=== PATIENT | female | born 1955 | race Caucasian/White ===

== ENCOUNTER 2017-06-18 02:34 | Day surgery (SDC) | payer BC ==
--- NOTE | 2017-06-17 16:56 | HISTORY AND PHYSICAL ---
DATE OF ADMISSION: 06/18/2017 CHIEF COMPLAINT Kidney stones. HISTORY OF PRESENT ILLNESS Patient is a 62-year-old white female with a history of kidney stones, who last fall had an obstructing renal stone as well as kidney stones, and subsequently underwent treatment of those. In more recent followup she was noted to have a 6 x 3 mm calcification in the lower pole of the left kidney, and a 2 mm mid pole stone, all on the left. She is now being brought to the operating room for planned extracorporeal shock wave lithotripsy and/or ureteroscopy as indicated. PAST MEDICAL HISTORY * Hyperlipidemia. * Kidney stones. * Arthritis. * Eczema. * Depression. PAST SURGICAL HISTORY * Tonsillectomy. * Knee surgery. * Left rotator cuff surgery. * Right NEHA surgery. * TMJ surgery. * Right extracorporeal shock wave lithotripsy in 2009. * Stent placement on the left in March 2016. * Left extracorporeal shock wave lithotripsy in April 2016. * Left ureteroscopy in May 2016. ALLERGIES FLOMAX and PENICILLIN. She has myalgias with Levaquin. CURRENT MEDICATIONS * Diltiazem. * EpiPen p.r.n. * Prozac. * Hydrochlorothiazide. * Potassium citrate. FAMILY HISTORY Noncontributory. REVIEW OF SYSTEMS Patient denies a productive cough, fever, chills, nausea, vomiting, liver disease, anginal type chest pain. She has recently had medical clearance by [facility] for some atypical chest pain, not thought to be cardiac in origin. PHYSICAL EXAMINATION GENERAL: Patient is a well-developed, well-nourished white female in no acute distress. HEENT: Normocephalic, atraumatic. CHEST: Clear to auscultation bilaterally. CARDIOVASCULAR: Regular rate and rhythm. ABDOMEN: Soft, nontender. No masses are palpated. GENITOURINARY: Exam is deferred to the operating room. EXTREMITIES: Without clubbing, cyanosis or edema. NEUROLOGIC: Exam is nonfocal. ASSESSMENT A 62-year-old white female with left kidney stones. PLAN We will perform extracorporeal shock wave lithotripsy and/or ureteroscopy as indicated. [facility]
[~2017-06-18] VITALS: Ht 162.6 cm; Wt 67.6 kg
[~2017-06-18 02:34] MED LIST: ASC500 PO; DIA5 PO; DOC100 PO; DOCU-416 PO; ERG400 PO; FLU10 PO; GLUC-179 PO; HYDR-2966 PO; HYDR-317; HYDR-385 PO; HYDR-4309 PO; IBUP-1618 PO; IBUP-1671 PO; IBUP600T22 PO; LEV500 PO; LEVO-85 PO; LOR5 PO; METH1TAB65 PO; MULT-1335 PO; NAPR220C12 PO; OXYB10TA16 PO; OXYB10TA21 PO; PER PO; PHEN200T32 PO; PHENA200 PO; POTA20TA94 PO; POTA40LI PO; RED600CA15 PO; TAM4 PO; TAMS0.4C25 PO; TOLT4CAP13 PO; TRAM-420 PO
[2017-06-18] MEDS ORDERED: IOPAMIDOL-200 50 ML VIAL IS ONE (08:07)
[2017-06-18] MEDS ORDERED: MIDAZOLAM 2 MG/2 ML VIAL IVP PRN (08:30)
[2017-06-18] MEDS ORDERED: FAMOTIDINE 20 MG TAB PO ONE (08:30)
[2017-06-18] MEDS ORDERED: LIDOCAINE/SOD BICARB 8.4% SYR ID ONE (08:30)
[2017-06-18] MEDS ORDERED: GENTAMICIN/NS 80 MG/100 ML PB 100 ML IVPB ONE (09:30)
[2017-06-18 10:12] VITALS: BP 114/73
[2017-06-18] MEDS: NORMOSOL R SOLN(*) 1000 ML BAG 1,000 ML IV PRN ×2 (10:12→14:45)
[2017-06-18] MEDS ORDERED: LIDOCAINE MPF 1% 5 ML VIAL ONE (10:13)
[2017-06-18] MEDS ORDERED: DEXAMETHASONE SOD 4 MG/ML VIAL ONE (10:13)
[2017-06-18] MEDS ORDERED: METOCLOPRAMIDE 10 MG/2 ML SDV ONE (10:13)
[2017-06-18] MEDS ORDERED: ONDANSETRON 4 MG/2 ML VIAL ONE (10:13)
[2017-06-18] MEDS ORDERED: PROPOFOL EMUL(*) 10MG/ML 20 ML 20 ML ONE (10:13)
[2017-06-18 10:15] LABS: PLATELET COUNT, AUTOMATED 274 K/uL (150-450)
[2017-06-18] MEDS ORDERED: fentaNYL CITR 100 MCG/2 ML AMP ONE (10:17)
[2017-06-18] MEDS ORDERED: KETOROLAC 30 MG/ML VIAL ONE (14:21)
--- NOTE | 2017-06-18 15:05 | RADIOLOGY IMAGING REPORT ---
FACILITY: [facility] PATIENT NAME: Rowena Duron : 1955 MR: [id number] V: [id number] EXAM DATE: ORDERING PHYSICIAN: PATRICIA EWING TECHNOLOGIST: Location: [facility] [place] Patient: Rowena Duron : 1955 Visit/Account:[id number] Date of Sevice: 06/12/2017 ABDOMEN PELVIS ESWL CYSTO W/O HISTORY: PREOP ORDER TECHNIQUE: Axial images acquired through the abdomen/pelvis. Coronal and sagittal reformatting also performed. No IV contrast administered. Dose Lowering Technique One of the following dose optimization techniques was utilized in the performance of this exam: Autom ated exposure control; adjustment of the mA and/or kV according to the patient's size; or use of an i terative reconstruction technique. Specific details can be referenced in the facility's radiology C T exam operational policy. COMPARISON: June 09, 2017 FINDINGS: Visualized lung bases: Negative. Hepatobiliary: Negative. Spleen: Negative. Adrenals: Negative. Pancreas: Negative. Kidneys ureters and bladder: No calcifications identified in the right renal collecting system. At least four calcifications are seen in the lower pole collecting system of the left kidney similar to the prior study. The largest measuring approximately 4 mm in diameter. There is no demonstration of hydronephrosis or hydroureter. The bladder is decompressed therefore not ideally evaluated. Genitalia: Negative. GI: Negative. Vessels/spaces/nodes: Negative. Bones/soft tissues: Small umbilical hernia containing fat. There is a dextro convex scoliosis of th e thoracic spine with spondylotic changes Additional findings: None pertinent. IMPRESSION: At least four nonobstructing calculi are seen in the lower pole collecting system of the left kidney that appears some are to the prior study. No calcifications identified in the right renal collecting system. Report Dictated By: Faviola Cabrera MD at 06/18/2017 2:57 PM Report E-Signed By: Faviola Cabrera MD at 06/18/2017 3:01 PM WSN:[email or web address]
[2017-06-18] MEDS ORDERED: DOCU-416 PO (15:29)
[2017-06-18] MEDS ORDERED: HYDR-4309 PO (15:30)
[2017-06-18 15:31] VITALS: BP 120/78
[2017-06-18 15:37] VITALS: BP 121/67
[2017-06-18 15:38] VITALS: BP 100/66
--- NOTE | 2017-06-20 10:24 | PIERCE ESWL ---
EVENT DATE: June 18, 2017 SURGEON: Patrice Anderson MD ANESTHESIOLOGIST: Raymundo Pedro MD ANESTHESIA: General PREOPERATIVE DIAGNOSIS Left renal calculi. POSTOPERATIVE DIAGNOSIS Left renal calculi. PROCEDURE PERFORMED Left renal extracorporeal shock wave lithotripsy. ESTIMATED BLOOD LOSS Minimal. IV FLUIDS Crystalloid. DRAINS None. COMPLICATIONS None. CONDITION The patient was taken to the recovery room awake and in stable condition. STATEMENT OF MEDICAL NECESSITY The patient is a 62-year-old white female with a history of a kidney stone. She was noted to have increasing stone burden in the left lower pole with a stone measuring 7 x 3 x 3 mm. She also had a second smaller stone just adjacent anteriorly to this larger stone. Options were discussed with the patient and she elected to undergo left extracorporeal shock wave lithotripsy. Specific risks and benefits were explained including bleeding, infection, failure to fragment stones or pass all fragments and need for secondary procedure, as well as damage to adjacent structures including kidney. Operative consent is signed and on the chart. DESCRIPTION OF OPERATION PERFORMED The patient was brought to the operating room after general anesthetic was obtained. She was placed supine on the lithotripsy table. A 7 x 3 mm stone was visualized with fluoroscopic imaging and placed in the lithotripsy cross- hairs in two planes. Treatment was begun at a power setting 2 and gradually increased to a power setting of 3 over the course of the first 300 shocks. A three minute pause was then performed and treatment was resumed, gradually increasing the power setting to 7.5. Intermittent two-plane fluoroscopy was used to ensure the cross-hairs remained on the stone until a fragmented pile. At 2500 shocks, the power was increased to 8.5 for 500 more shocks. She received a total of 3000 shocks to the left kidney in the area of this 7 x 3 mm stone. At the conclusion, there were no further significant fragments that could be identified. The patient was awakened in the operating room and taken to the recovery area in stable condition. The plan will be to allow the patient to be discharged home on [place] and [place]. She is to start the head down protocol in one to two days. She will plan to see me in the Urology Clinic in approximately eight weeks with a followup low-dose CT scan to evaluate treatment results. MARYLU
== END 2017-06-18 15:31 | disposition home or self-care (01) ==
LOC: OR 02:34
PROVIDERS: ATTEND Urology
DX: N20.0 Calculus of kidney (principal); E78.5 Hyperlipidemia, unspecified; Z87.442 Personal history of urinary calculi
CPT/HCPCS: 36415; 50590; 74176; 81001; 85025; 85610; J1100; J1580; J1885; J2001; J2405; J2704; J2765; J3010; 82310; 82374; 82435; 82565; 82947; 84132; 84295; 84520; Q9966

== ENCOUNTER 2017-09-11 15:34 | Observation (INO) | payer BC ==
[~2017-09-11] VITALS: Ht 162.6 cm; Wt 72.6 kg
--- NOTE | 2017-09-11 15:49 | ER Report ---
History and Physical Time Seen By MD: 15:49 Hx. of Stated Complaint: pt reports "she was feeling funny", went to [facility]- "took vitals and told me I was in a-fib" HPI/ROS CHIEF COMPLAINT: Rapid heart rate HISTORY OF PRESENT ILLNESS: 62-year-old female patient presents to emergency room with complaint of a rapid heart rate. Patient states this started approximately 2:00 this afternoon. She states that she is not doing anything and it felt like her heart was beating out of her chest. She states she did feel veins in her chest expanding. She states that she did go to urgent care and was evaluated there. She states that they listen to her and told her that she was in H with fibrillation and referred her to the emergency room. Patient states she's not feeling shortness of breath, is not having chest pain. She denies any nausea, vomiting or diarrhea. She she does feel slightly anxious. REVIEW OF SYSTEMS: Respiratory: No cough, no dyspnea. Cardiovascular: As noted above Gastrointestinal: No vomiting, no abdominal pain. Musculoskeletal: No back pain. Allergies: Coded Allergies: levofloxacin (Verified Allergy, Severe, TENDONITIS, 09/11/17) tamsulosin (Verified Allergy, Severe, "JUST FELT TERRIBLE", 09/11/17) Penicillins (Verified Allergy, Intermediate, HIVES, 09/11/17) phenazopyridine (Verified Adverse Reaction, Intermediate, "Swollen eyes" , 09/11/17) Home Meds Reported Medications Diazepam (DIAZEPAM) 2 Mg Tablet, 1 TAB PO DAILY Y for HEADACHE 09/11/17 Potassium Citrate (Potassium Citrate ER) 15 Meq Tablet.er, 2 TAB PO QPM 09/11/17 Potassium Citrate (Potassium Citrate ER) 15 Meq Tablet.er, 1 TAB PO QAM 09/11/17 Naproxen Sodium (ALEVE) 220 Mg Capsule, 220 MG PO BID, CAPSULE 09/11/17 Renick-3 Fatty Acids/Fish Oil (FISH OIL 1,000 MG SOFTGEL) 1 Each Capsule, 1 EACH PO DAILY, CAPSULE 09/11/17 Hydrochlorothiazide (HYDROCHLOROTHIAZIDE) 25 Mg Tablet, 1 TAB PO BID, TAB 06/12/17 Vitamin D (Vitamin D) 400 Intlu Tab, 400 INTLU PO QDAY, 0 Refills 02/06/10 Gluc Hcl/Msm/C/Mn/[place]/Ging (Msm Glucosamine Complex Tab) 1 Tab Tablet, 1 TAB PO BID, 0 Refills 02/06/10 Fluoxetine Hcl (Prozac) 10 Mg Cap, 10 MG PO QDAY, 0 Refills 02/06/10 Discontinued Reported Medications Hydrocodone Bit/Acetaminophen (NORCO 5-325 TABLET) 1 Each Tablet, 1-2 EACH PO Q6H Y for PAIN, #20 TAB 06/18/17 Docusate Sodium (COLACE) 100 Mg Capsule, 100 MG PO BID for STOOL SOFTENER, #30 CAPSULE 06/18/17 Potassium Chloride (POTASSIUM CHLORIDE) 20 Meq Tab.er.prt, 80 MEQ PO QHS 06/12/17 Potassium Chloride (POTASSIUM CHLORIDE) 40 Meq/15 Ml Liquid, 40 MEQ PO QAM 06/12/17 Diazepam (VALIUM) 5 Mg Tablet, 2 MG PO PRN, #15 TAB 06/20/16 Past Medical/Surgical History Patient has a past medical history of bradycardia, hypotension, hyperlipidemia, shortness of breath with activity, kidney stones, TMJ, eczema, alcohol use, depression, anxiety. Patient has a surgical history of tonsillectomy, jaw surgery, right rotator cuff surgery, right anterior cruciate ligament, ESWL, lithotripsy. Patient has a family medical history of cancer, CAD. Reviewed Nurses Notes: Yes Hx Smoking: No Smoking Status: Never Smoker Hx Substance Use Disorder: No Hx Alcohol Use: Yes (OCCASIONAL) Constitutional Vital Sign - Last 24 Hours 09/11/17 09/11/17 09/11/17 09/11/17 15:35 15:38 15:39 15:49 Temp 97.5 Pulse 125 127 Resp 16 13 18 B/P (MAP) 106/77 106/77 (87) Pulse Ox 94 94 O2 Delivery Room Air 09/11/17 09/11/17 09/11/17 09/11/17 15:54 15:59 16:00 16:01 Pulse 138 137 Resp 20 20 B/P (MAP) 116/94 (101) 90/67 (75) Pulse Ox 96 96 09/11/17 09/11/17 09/11/17 09/11/17 16:04 16:09 16:14 16:19 Pulse 109 89 97 105 Resp 14 13 22 9 Pulse Ox 96 97 96 96 09/11/17 09/11/17 09/11/17 09/11/17 16:24 16:29 16:30 16:34 Pulse 98 93 98 Resp 11 13 20 B/P (MAP) 90/59 (69) Pulse Ox 96 95 96 09/11/17 09/11/17 09/11/17 09/11/17 16:39 16:44 16:59 17:00 Pulse 95 93 95 Resp 12 15 8 B/P (MAP) 100/68 (79) Pulse Ox 96 95 96 09/11/17 09/11/17 09/11/17 09/11/17 17:04 17:09 17:14 17:19 Pulse 94 105 106 99 Resp 40 27 29 12 Pulse Ox 95 95 94 96 09/11/17 09/11/17 09/11/17 09/11/17 17:24 17:30 17:34 17:39 Pulse 104 107 107 Resp 18 17 17 B/P (MAP) 108/70 (83) Pulse Ox 95 96 98 09/11/17 09/11/17 09/11/17 09/11/17 17:44 17:49 17:54 17:59 Pulse 117 104 108 121 Resp 31 33 18 Pulse Ox 97 95 93 09/11/17 09/11/17 09/11/17 09/11/17 18:00 18:04 18:09 18:14 Pulse 108 110 121 Resp 22 11 12 B/P (MAP) 110/73 (85) Pulse Ox 96 97 97 09/11/17 09/11/17 18:19 18:24 Pulse 105 119 Resp 13 12 Pulse Ox 96 97 Physical Exam General Appearance: The patient is alert, has no immediate need for airway protection and no current signs of toxicity. ENT: Tympanic membranes are pearly-higgins, auditory canals are patent, mucous membranes are moist. Respiratory: Chest is non tender, lungs are clear to auscultation. Cardiac: Irregular rate and rhythm Gastrointestinal: Abdomen is soft and non tender, no masses, bowel sounds normal. Musculoskeletal: Neck: Neck is supple and non tender. Extremities have full range of motion and are non tender. Skin: No rashes or lesions. DIFFERENTIAL DIAGNOSIS: After history and physical exam differential diagnosis was considered for atrial fibrillation, SVT. Medical Decision Making Data Points Result Diagram: 09/11/17 1544 09/11/17 1544 Laboratory Hematology Test 09/11/17 15:44 Red Blood Count 5.80 M/uL (4.17-5.56) Mean Corpuscular Volume 88.2 fL (80.0-96.0) Mean Corpuscular Hemoglobin 30.5 pg (26.0-33.0) Mean Corpuscular Hemoglobin Concent 34.5 g/dL (32.0-36.0) Red Cell Distribution Width 13.6 % (11.5-14.5) Mean Platelet Volume 8.9 fL (7.2-11.1) Neutrophils (%) (Auto) 60.4 % (39.4-72.5) Lymphocytes (%) (Auto) 30.2 % (17.6-49.6) Monocytes (%) (Auto) 7.4 % (4.1-12.4) Eosinophils (%) (Auto) 0.6 % (0.4-6.7) Basophils (%) (Auto) 1.4 % (0.3-1.4) Nucleated RBC Relative Count (auto) 0.0 /100WBC Neutrophils # (Auto) 5.3 K/uL (2.0-7.4) Lymphocytes # (Auto) 2.7 K/uL (1.3-3.6) Monocytes # (Auto) 0.7 K/uL (0.3-1.0) Eosinophils # (Auto) 0.1 K/uL (0.0-0.5) Basophils # (Auto) 0.1 K/uL (0.0-0.1) Nucleated RBC Absolute Count (auto) 0.00 K/uL Sodium Level 142 mmol/L (137-145) Potassium Level 2.7 mmol/L (3.5-5.0) Chloride Level 100 mmol/L (98-107) Carbon Dioxide Level 26 mmol/L (22-31) Blood Urea Nitrogen 24 mg/dl (7-18) Creatinine 0.80 mg/dl (0.52-1.04) Glomerular Filtration Rate Calc > 60.0 Random Glucose 122 mg/dl (75-110) Calcium Level 10.1 mg/dl (8.4-10.2) Magnesium Level 2.0 mg/dl (1.7-2.2) Total Bilirubin 0.6 mg/dl (0.2-1.3) Aspartate Amino Transf (AST/SGOT) 32 U/L (0-35) Alanine Aminotransferase (ALT/SGPT) 31 U/L (0-56) Alkaline Phosphatase 117 U/L (0-126) Troponin I < 0.012 ng/ml Total Protein 7.7 gm/dl (6.3-8.2) Albumin 4.4 g/dl (3.5-5.0) Chemistry Test 09/11/17 15:44 White Blood Count 8.8 k/uL (4.5-11.0) Red Blood Count 5.80 M/uL (4.17-5.56) Hemoglobin 17.7 g/dL (12.0-16.0) Hematocrit 51.2 % (34.0-47.0) Mean Corpuscular Volume 88.2 fL (80.0-96.0) Mean Corpuscular Hemoglobin 30.5 pg (26.0-33.0) Mean Corpuscular Hemoglobin Concent 34.5 g/dL (32.0-36.0) Red Cell Distribution Width 13.6 % (11.5-14.5) Platelet Count 266 K/uL (150-450) Mean Platelet Volume 8.9 fL (7.2-11.1) Neutrophils (%) (Auto) 60.4 % (39.4-72.5) Lymphocytes (%) (Auto) 30.2 % (17.6-49.6) Monocytes (%) (Auto) 7.4 % (4.1-12.4) Eosinophils (%) (Auto) 0.6 % (0.4-6.7) Basophils (%) (Auto) 1.4 % (0.3-1.4) Nucleated RBC Relative Count (auto) 0.0 /100WBC Neutrophils # (Auto) 5.3 K/uL (2.0-7.4) Lymphocytes # (Auto) 2.7 K/uL (1.3-3.6) Monocytes # (Auto) 0.7 K/uL (0.3-1.0) Eosinophils # (Auto) 0.1 K/uL (0.0-0.5) Basophils # (Auto) 0.1 K/uL (0.0-0.1) Nucleated RBC Absolute Count (auto) 0.00 K/uL Glomerular Filtration Rate Calc > 60.0 Calcium Level 10.1 mg/dl (8.4-10.2) Magnesium Level 2.0 mg/dl (1.7-2.2) Total Bilirubin 0.6 mg/dl (0.2-1.3) Aspartate Amino Transf (AST/SGOT) 32 U/L (0-35) Alanine Aminotransferase (ALT/SGPT) 31 U/L (0-56) Alkaline Phosphatase 117 U/L (0-126) Troponin I < 0.012 ng/ml Total Protein 7.7 gm/dl (6.3-8.2) Albumin 4.4 g/dl (3.5-5.0) EKG/Imaging EKG Interpretation 12 lead EKG done at 1536: Rhythm: There are complex tachycardia with a ventricular rate of 129 bpm [place]: Left axis deviation QRS: normal ST segments: normal 12 lead EKG done at 1612: Rhythm: Atrial fibrillation with ventricular rate of 80 bpm [place]: normal QRS: normal ST segments: normal Imaging CHEST PA AND LAT History: Rapid heart rate Comparison 02/04/2010. FINDINGS: Lungs are clear, no effusion. No pneumothorax. Heart size within normal limits. Mediastinal contour within normal limits. IMPRESSION: No evidence of acute cardiopulmonary disease. Report Dictated By: Rinku Reed MD at 09/11/2017 5:02 PM Report E-Signed By: Rinku Reed MD at 09/11/2017 5:03 PM ED Course/Re-evaluation ED Course Patient was admitted to exam room, history and physical were obtained. Differential diagnoses were considered. On examination patient has a regular heart rate with a rate that is in the 140s. A CBC, CMP, troponin, EKG, chest x- ray were done. EKG showed a narrow complex tachycardia. There appeared to be P waves on the EKG. Due to that a dose of diltiazem was given. That did slow the heart rate down into the 90s. At that time it appeared the patient did have atrial fibrillation. CBC and CMP were unremarkable except for a low potassium of 2.7. Magnesium level was done which was 1.7. Chest x-rays done showed no acute cardiopulmonary processes. Patient did receive a 20 mEq infusion of potassium. Patient tolerated procedure well, following the infusion she did remain in atrial fibrillation. I discussed the case with Dr. Kaylan James, hospitalist who agreed to accept the patient for admission with diagnosis of new onset A. fib. I discussed this with the patient and her family and they verbalized understanding and agreement. Decision to Disposition Date: Sep 11, 2017 Decision to Disposition Time: 18:21 Depart Departure Latest Vital Signs Vital Signs Date Time Temp Pulse Resp B/P (MAP) Pulse Ox O2 Delivery O2 Flow Rate FiO2 09/11/17 18:24 119 12 97 09/11/17 18:00 110/73 (85) 09/11/17 15:35 97.5 Room Air Impression: Primary Impression: Atrial fibrillation Condition: Condition Unchanged Disposition: Admitted from ER Referrals: MARGARET ROMO (PCP) Problem Qualifiers Primary Impression: Atrial fibrillation Atrial fibrillation type: unspecified Qualified Codes: I48.91 - Unspecified atrial fibrillation GILBERTO WHEELER Sep 11, 2017 15:49
[2017-09-11] MEDS ORDERED: DILTIAZEM 5 MG/ML 5ML IVPUSH IVP ONE (15:50)
[2017-09-11] MEDS ORDERED: NS(*) 0.9% 1000 ML BAG 1,000 ML IV ONE (15:50)
--- NOTE | 2017-09-11 15:50 | EKG ---
[facility] PATIENT NAME: REYES BARRY : [id number] MR: [id number] V: [id number] EXAM DATE: ORDERING PHYSICIAN: GILBERTO WHEELER TECHNOLOGIST: SANTY Myles Reason : AFIB Blood Pressure : / mmHG Vent. Rate : 129 BPM Atrial Rate : 192 BPM P-R Int : 000 ms QRS Dur : 106 ms QT Int : 328 ms P-R-T Axes : 000 -66 068 degrees QTc Int : 480 ms Atrial fibrillation with rapid ventricular response Left axis deviation Nonspeciic ST changes Possible Anterior infarct (cited on or before 18-APR-2016) Abnormal ECG When compared with ECG of 09-JUN-2017 17:16, Atrial fibrillation has replaced Sinus rhythm Vent. rate has increased BY 73 BPM Confirmed by YAN GROVER ([id number]) on 09/11/2017 3:53:46 PM Referred By: Confirmed By:YAN GROVER
[2017-09-11 16:03] LABS: PLATELET COUNT, AUTOMATED 266 K/uL (150-450)
[2017-09-11] MEDS ORDERED: KCL (*) 20 MEQ/100 ML PREMIX 100 ML IV ONE ×2 (16:20→21:00)
--- NOTE | 2017-09-11 16:24 | EKG ---
FACILITY: [facility] PATIENT NAME: REYES BARRY : [id number] MR: [id number] V: [id number] EXAM DATE: ORDERING PHYSICIAN: GILBERTO WHEELER TECHNOLOGIST: SANTY Myles Reason : REPEAT AFIB Blood Pressure : / mmHG Vent. Rate : 088 BPM Atrial Rate : 085 BPM P-R Int : 000 ms QRS Dur : 102 ms QT Int : 402 ms P-R-T Axes : 000 131 013 degrees QTc Int : 486 ms Atrial fibrillation Left posterior fascicular block Poor R wave progression. Abnormal ECG When compared with ECG of 11-SEP-2017 15:36, Left posterior fascicular block is now present ST no longer depressed in Inferior leads Confirmed by YAN GROVER ([id number]) on 09/12/2017 6:23:37 AM Referred By: LIAM Confirmed By:YAN GROVER
--- NOTE | 2017-09-11 17:08 | RADIOLOGY IMAGING REPORT ---
FACILITY: [facility] PATIENT NAME: Rowena Duron : 1955 MR: [id number] V: [id number] EXAM DATE: ORDERING PHYSICIAN: GILBERTO WHEELER TECHNOLOGIST: Location: Patient: Rowena Duron : 1955 Visit/Account:[id number] Date of Sevice: 09/11/2017 CHEST PA AND LAT History: Rapid heart rate Comparison 02/04/2010. FINDINGS: Lungs are clear, no effusion. No pneumothorax. Heart size within normal limits. Mediastinal contour w ithin normal limits. IMPRESSION: No evidence of acute cardiopulmonary disease. Report Dictated By: Rinku Reed MD at 09/11/2017 5:02 PM Report E-Signed By: Rinku Reed MD at 09/11/2017 5:03 PM WSN:[id number]
[2017-09-11 19:45] VITALS: BP 110/70
[2017-09-11] MEDS ORDERED: OMEG-23 PO (20:00)
[2017-09-11] MEDS ORDERED: NAPR220C12 PO (20:00)
[2017-09-11] MEDS ORDERED: POTA15TA PO ×2 (20:22)
[2017-09-11] MEDS ORDERED: DIAZ2TAB74 PO ×2 (20:26→20:28)
[2017-09-11] MEDS ORDERED: KCL/NS* 20 MEQ/1000 ML PREMIX 1,000 ML IV SCH (20:37)
[2017-09-11] MEDS ORDERED: ACETAMINOPHEN 325 MG TAB PO PRN (20:40)
--- NOTE | 2017-09-11 20:55 | History & Physical ---
History of Present Illness Chief Complaint The patient is a 62 year old female with PMH significant for HTN and hyperlipidemia who presents with her heart racing since 2:15 this afternoon. History of Present Illness The patient states she felt her heart start racing at 2:15. She had some chest pressure with this and an uncomfortable sensation in her L back as well. She was not short of breath. She has no previous history of cardiac issues but notes she did have short runs of SVT during her pregnancies. She has hyperlipidemia which she has elected not to treat. She has HTN and uses HCTZ for this. She is very active and plays tennis regularly without having shortness of breath or chest pain or pressure. She does have FH of CAD in her father and an aunt. She smoked only briefly in college. She has a very rare alcoholic beverage. She states the racing of her heart persisted and she presented to Urgent Care for evaluation. An EKG showed she was in atrial fibrillation. She was referred to [facility] for further evaluation. History Problems: (1) Eczema Status: Chronic (2) Anxiety and depression Status: Chronic (3) Nephrolithiasis Status: Chronic (4) HTN (hypertension) Status: Chronic (5) Hyperlipidemia Status: Chronic (6) Hx of repair of rotator cuff Status: Resolved (7) S/P ACL repair Status: Resolved (8) Hx of lithotripsy Status: Resolved (9) Hx of tonsillectomy Status: Resolved (10) History of mandibular surgery Status: Resolved Home Meds Reported Medications Diazepam (DIAZEPAM) 2 Mg Tablet, 1 TAB PO DAILY Y for HEADACHE 09/11/17 Potassium Citrate (Potassium Citrate ER) 15 Meq Tablet.er, 2 TAB PO QPM 09/11/17 Potassium Citrate (Potassium Citrate ER) 15 Meq Tablet.er, 1 TAB PO QAM 09/11/17 Naproxen Sodium (ALEVE) 220 Mg Capsule, 220 MG PO BID, CAPSULE 09/11/17 [place]-3 Fatty Acids/Fish Oil (FISH OIL 1,000 MG SOFTGEL) 1 Each Capsule, 1 EACH PO DAILY, CAPSULE 09/11/17 Hydrochlorothiazide (HYDROCHLOROTHIAZIDE) 25 Mg Tablet, 1 TAB PO BID, TAB 06/12/17 Vitamin D (Vitamin D) 400 Intlu Tab, 400 INTLU PO QDAY, 0 Refills 02/06/10 Gluc Hcl/Msm/C/Mn/Menno/Ging (Msm Glucosamine Complex Tab) 1 Tab Tablet, 1 TAB PO BID, 0 Refills 02/06/10 Fluoxetine Hcl (Prozac) 10 Mg Cap, 10 MG PO QDAY, 0 Refills 02/06/10 Discontinued Reported Medications Hydrocodone Bit/Acetaminophen (NORCO 5-325 TABLET) 1 Each Tablet, 1-2 EACH PO Q6H Y for PAIN, #20 TAB 06/18/17 Docusate Sodium (COLACE) 100 Mg Capsule, 100 MG PO BID for STOOL SOFTENER, #30 CAPSULE 06/18/17 Potassium Chloride (POTASSIUM CHLORIDE) 20 Meq Tab.er.prt, 80 MEQ PO QHS 06/12/17 Potassium Chloride (POTASSIUM CHLORIDE) 40 Meq/15 Ml Liquid, 40 MEQ PO QAM 06/12/17 Diazepam (VALIUM) 5 Mg Tablet, 2 MG PO PRN, #15 TAB 06/20/16 Allergies: Coded Allergies: levofloxacin (Verified Allergy, Severe, TENDONITIS, 09/11/17) tamsulosin (Verified Allergy, Severe, "JUST FELT TERRIBLE", 09/11/17) Penicillins (Verified Allergy, Intermediate, HIVES, 09/11/17) phenazopyridine (Verified Adverse Reaction, Intermediate, "Swollen eyes" , 09/11/17) Other Social/Family Hx . Retired. Many hobbies including gardening, tennis, singing, and books on tape. Has a dog at home. Hx Smoking: No Smoking Status: Never Smoker Caffeine Intake: Coffee Caffeine/Cups Per Day: 1/2 CPD Hx Alcohol Use: Yes (OCCASIONAL) Hx Substance Use Disorder: No Social Drug Use: Never History of IV Drug Use: No Review of Systems All Systems Reviewed/Normal: Yes, Except as Noted Cardiovascular: Palpitations, Other (Heart racing. Some chest pressure.) Exam Vital Signs Vital Signs Date Time Temp Pulse Resp B/P (MAP) Pulse Ox O2 Delivery O2 Flow Rate FiO2 09/12/17 00:01 63 09/11/17 23:53 98.5 12 110/74 (86) 96 Room Air General Appearance: Alert, Awake, No Acute Distress, Afebrile Neuro: No Gross deficits Cardiovascular: Regular Rate and Rhythm Respiratory: Clear to Auscultation GI: Abd Soft and Non-Tender Lymph: Cervical Nodes Benign Extremities: Warm Integumentary: Skin Intact without Lesion / Mass Psych: Appropriate Mood & Affect Medical Decision Making Data Points Result Diagram: 09/11/17 1544 09/11/17 1544 Item Value Date Time Calcium Level 10.1 mg/dl 09/11/17 1544 Total Bilirubin 0.6 mg/dl 09/11/17 1544 Aspartate Amino Transf (AST/SGOT) 32 U/L 09/11/17 1544 Alanine Aminotransferase (ALT/SGPT) 31 U/L 09/11/17 1544 Alkaline Phosphatase 117 U/L 09/11/17 1544 Total Protein 7.7 gm/dl 09/11/17 1544 Albumin 4.4 g/dl 09/11/17 1544 Magnesium Level 2.0 mg/dl 09/11/17 1544 Troponin I < 0.012 ng/ml 09/11/17 154 EKG / Imaging EKG Interpretation FACILITY: [facility] [place] PATIENT NAME: REYES DURON : [id number] MR: [id number] V: [id number] EXAM DATE: [id number] ORDERING PHYSICIAN: GILBERTO WHEELER TECHNOLOGIST: SANTY Myles Reason : AFIB Blood Pressure : / mmHG Vent. Rate : 129 BPM Atrial Rate : 192 BPM P-R Int : 000 ms QRS Dur : 106 ms QT Int : 328 ms P-R-T Axes : 000 -66 068 degrees QTc Int : 480 ms Atrial fibrillation with rapid ventricular response Left axis deviation Nonspeciic ST changes Possible Anterior infarct (cited on or before 18-APR-2016) Abnormal ECG When compared with ECG of 09-JUN-2017 17:16, Atrial fibrillation has replaced Sinus rhythm Vent. rate has increased BY 73 BPM Confirmed by YAN GROVER ([id number]) on 09/11/2017 3:53:46 PM Referred By: Confirmed By:YAN GROVER [id number] T: CARLJULI/ Imaging FACILITY: [facility] [place] PATIENT NAME: Reyes Duron : 1955 MR: [id number] V: [id number] EXAM DATE: [id number] ORDERING PHYSICIAN: GILBERTO WHEELER TECHNOLOGIST: Location: [facility] [place] Patient: Reyes Duron : 1955 Visit/Account:[id number] Date of Sevice: 09/11/2017 CHEST PA AND LAT History: Rapid heart rate Comparison 02/04/2010. FINDINGS: Lungs are clear, no effusion. No pneumothorax. Heart size within normal limits. Mediastinal contour within normal limits. IMPRESSION: No evidence of acute cardiopulmonary disease. Report Dictated By: Rinku Reed MD at 09/11/2017 5:02 PM Report E-Signed By: Rinku Reed MD at 09/11/2017 5:03 PM [id number] Pre-Admit Course Medical Record Review: Yes Assessment and Plan Problems: (1) Atrial fibrillation with RVR Status: Acute Assessment & Plan: The patient was given diltiazem 20mg bolus in ER. She was in NSR when she arrived on the medical floor. Will continue to monitor on telemetry while replacing her potassium. (2) Hypokalemia due to loss of potassium Status: Acute Assessment & Plan: The patient takes potassium citrate 1620mg tabs ( approximately 20meq), one in the am and two in the pm at home. She received one K-rider in the ER. Will give another as well as some oral potassium. She does take HCTZ chronically. Will repeat BMP in am. Time Spent on Plan of Care: < 30 min Copies to: MARGARET ROMO Venous Thromboembolism VTE Risk Physician Assess for VTE Risk: Yes Patient's VTE Risk: Low VTE Diagnostic Test 2 Days Prior to Admit: No Antithrombotics Is Pt On Any Antithrombotics?: No Exam Sepsis Risk: No Definite Risk YAN BAUMAN MD Sep 11, 2017 20:55
[2017-09-11] MEDS ORDERED: POTASSIUM CITRATE 540 MG TABCR PO SCH (21:00)
[2017-09-11 23:53] VITALS: BP 110/74
[2017-09-12 03:42] VITALS: BP 105/69
[2017-09-12 06:07] LABS: PLATELET COUNT, AUTOMATED 203 K/uL (150-450)
[2017-09-12 07:17] VITALS: BP_SYST 105; BP_SYST 107; BP_DIAS 69; BP_DIAS 71
[2017-09-12] MEDS ORDERED: ENOXAPARIN 40 MG/0.4ML SYR SC SCH (09:00)
[2017-09-12] MEDS ORDERED: FLUoxetine HCL 10 MG CAP PO SCH (09:00)
--- NOTE | 2017-09-12 10:13 | Hospitalist Progress Note ---
Subjective Progress Notes Subjective Feels well with no chest pain or SOB. Rhythm is sinus. Physical Exam Vital Signs Date Time Temp Pulse Resp B/P (MAP) Pulse Ox O2 Delivery O2 Flow Rate FiO2 09/12/17 09:00 94 09/12/17 09:00 Room Air 09/12/17 07:17 98.4 93 16 107/71 (83) Intake and Output 09/13/17 07:00 Intake Total 469 ml Balance 469 ml Intake Oral 240 ml IV Total 229 ml # Voids 1 # Bowel Movements 1 General Appearance: Alert, Awake, No Acute Distress, Afebrile Cardiovascular: Regular Rate and Rhythm, Other (S1S2 are normal. Gradee 2/6 systolic murmur heard best at 2nd right IS radiating to sternal notch and left carotid.) Respiratory: Clear to Auscultation GI: Soft and Non-Tender Psych: Alert & Oriented X3, Appropriate Mood & Affect Result Diagram: 09/12/17 0532 09/12/17 0532 Assessment and Plan Problems: (1) Atrial fibrillation with RVR Status: Acute Assessment & Plan: The patient was given diltiazem 20mg bolus in ER. She was in NSR when she arrived on the medical floor. Will continue to monitor on telemetry while replacing her potassium. (2) Hypokalemia due to loss of potassium Status: Acute Assessment & Plan: The patient takes potassium citrate 1620mg tabs ( approximately 20meq), one in the am and two in the pm at home. She received one K-rider in the ER. She does take HCTZ chronically. K+ up to 3.9 this AM. Will continue K+ citrate as is along with HCTZ in deference to renal stones and add KCL 20 mEq daily. (3) Aortic stenosis Status: Chronic Assessment & Plan: Clinically her murmur is . ECHO is pending this AM and will dictate anticoagulation or not. Time Spent on Plan of Care: > 30 min Exam Sepsis Risk: No Definite Risk TONYA LOVETT MD FACP Sep 12, 2017 10:12
[2017-09-12 11:55] VITALS: Ht 162.6 cm; Wt 72.6 kg
[2017-09-12 12:35] VITALS: BP 101/69
[2017-09-12] MEDS ORDERED: ASPI81TA86 PO (12:40)
[2017-09-12] MEDS ORDERED: POTA20TA85 PO (12:40)
--- NOTE | 2017-09-12 12:50 | Hospitalist Depart ---
Discharge Summary Reason for Hosp/Final Diag: (1) Atrial fibrillation with RVR Status: Acute Hospital Course & Plan: The patient was given diltiazem 20mg bolus in ER. She was in NSR when she arrived on the medical floor. Will continue to monitor on telemetry while replacing her potassium. K= up to 3.9 by time of discharge. No recurrence of atrial fibrillation. ECHO cardiogram was quite unremarkable with LVEF of 60%, aortic valve area of 2.87 sq cm, mild mitral and aortic insuff with no evidence for bicuspid aortic valve, no valve leaflet abnormalities with good wall motion and minor grade 1/4 diastolic dysfunction. Main issue at this point is keeping closer track of the serum K+ given the relatively large dose of HCTZ to keep her from having recurrence of renal stones. She will add KCL 20 mEq to her program and will recheck K+ on Thursday at [facility]. Also with no significant structural abnormalities she will not require major anticoagulation but will take ASA 81 mg a day. (2) Hypokalemia due to loss of potassium Status: Acute Hospital Course & Plan: The patient takes potassium citrate 1620mg tabs ( approximately 20meq), one in the am and two in the pm at home. She received one K-rider in the ER. She does take HCTZ chronically. K+ up to 3.9 this AM. Will continue K+ citrate as is along with HCTZ in deference to renal stones and add KCL 20 mEq daily. See above. (3) Nephrolithiasis Status: Chronic Hospital Course & Plan: Continue HCTZ 25 mg bid and K+citrate one AM and two PM. Departure Weight (Pounds): 160 Result Diagram: 09/12/1753109/12/17531 Condition: Improved Discharge: Home Time Spent: > 30 min Discharge Instructions Home Meds Reported Medications Diazepam (DIAZEPAM) 2 Mg Tablet, 1 TAB PO DAILY Y for HEADACHE 09/11/17 Potassium Citrate (Potassium Citrate ER) 15 Meq Tablet.er, 2 TAB PO QPM 09/11/17 Potassium Citrate (Potassium Citrate ER) 15 Meq Tablet.er, 1 TAB PO QAM 09/11/17 Naproxen Sodium (ALEVE) 220 Mg Capsule, 220 MG PO BID, CAPSULE 09/11/17 [place]-3 Fatty Acids/Fish Oil (FISH OIL 1,000 MG SOFTGEL) 1 Each Capsule, 1 EACH PO DAILY, CAPSULE 09/11/17 Hydrochlorothiazide (HYDROCHLOROTHIAZIDE) 25 Mg Tablet, 1 TAB PO BID, TAB 06/12/17 Vitamin D (Vitamin D) 400 Intlu Tab, 400 INTLU PO QDAY, 0 Refills 02/06/10 Gluc Hcl/Msm/C/Mn/[place]/Ging (Msm Glucosamine Complex Tab) 1 Tab Tablet, 1 TAB PO BID, 0 Refills 02/06/10 Fluoxetine Hcl (Prozac) 10 Mg Cap, 10 MG PO QDAY, 0 Refills 02/06/10 Discontinued Reported Medications Hydrocodone Bit/Acetaminophen (NORCO 5-325 TABLET) 1 Each Tablet, 1-2 EACH PO Q6H Y for PAIN, #20 TAB 06/18/17 Docusate Sodium (COLACE) 100 Mg Capsule, 100 MG PO BID for STOOL SOFTENER, #30 CAPSULE 06/18/17 Potassium Chloride (POTASSIUM CHLORIDE) 20 Meq Tab.er.prt, 80 MEQ PO QHS 06/12/17 Potassium Chloride (POTASSIUM CHLORIDE) 40 Meq/15 Ml Liquid, 40 MEQ PO QAM 06/12/17 Diazepam (VALIUM) 5 Mg Tablet, 2 MG PO PRN, #15 TAB 06/20/16 Diet: Regular Activity: As Tolerated Special Instructions: Check potassium on Thursday at [facility] office. Copies to: MARGARET ROMO BILL CLERK; PATRICIA EWING MD Venous Thromboembolism Antithrombotics Is Pt On Any Antithrombotics?: No TONYA LOVETT MD FACP Sep 12, 2017 12:50
--- NOTE | 2017-09-14 10:25 | RADIOLOGY IMAGING REPORT ---
FACILITY: [facility] [place] PATIENT NAME: REYES BARRY : [id number] MR: [id number] V: [id number] EXAM DATE: ORDERING PHYSICIAN: TONYA LOVETT TECHNOLOGIST: Viktoriya Welch EXAMINATION:TWO-DIMENSIONAL ECHOCARDIOGRAPH REASON:AORTIC STENOSIS 2D Measurements (normal values in centimeters) LV endLV endRV endVent.LV PostAorticLeftPercent DiastolicSystolicDiastolicSeptumWallRootAtriumShortening (3.5-5.7)(0.9-2.6)(0.6-1.1)(0.6-1.1)(2.0-3.7)(1.9-4.0)(25-35%) [id number]% STROKE VOLUME: 53ml ESTIMATED EJECTION FRACTION:62% PARASTERNAL LONG AXIS: Overall left ventricular systolic function appears to be normal. Chamber sizes also appear to be normal. Aortic valve appears to open normally. Mitral valve also appears to open normally. Color examination of the mitral valve revealed mitral insufficiency. Color examination of the aortic valve revealed some aortic insufficiency present. No wall motion abnormalities are noted. No left ventricular thickening is noted. PARASTERNAL SHORT AXIS: Overall left ventricular function again appears to be normal. No wall motion abnormalities are noted. Aortic valve is trileaflet in configuration & opens normally. Color examination of the pulmonic valve reveals a trace of pulmonic insufficiency. There is also some aortic insufficiency as well as some tricuspid insufficiency present. APICAL FOUR AND TWO CHAMBER: Normal left ventricular ejection fraction. Right ventricle also appears to contract normally & the TAPSE is measured at 2.0 which is within normal ranges. Aortic valve area is measured within normal ranges at 2.5cm2. Mitral valve area is also measured within normal ranges at 3.9cm2. Left atrial & right atrial volumes are also measured within normal ranges at 27 & 22ml/m2 respectively. The tricuspid regurgitation Vmax measured at 2.55m/sec. Color examination of the mitral valve reveals a mild to borderline moderate amount of mitral insufficiency. The mitral regurgitant volume is 21ml. The regurgitant fraction was 8% & the effective regurgitant orifice was.12cm. Color examination of the tricuspid valve reveals a mild amount of tricuspid insufficiency present. SUBCOSTAL VIEW: No pericardial effusion was noted. No atrioseptal or ventriculoseptal defects were appreciated. Doppler examination of the mitral valve in diastole does reveal the A wave > E wave. The PISA of the mitral regurgitation was .5cm at an aliasing velocity of 31. Aortic insufficiency pressure half time is 1800msec. IVC is normal in size. OVERALL IMPRESSION: 1. Normal left ventricular ejection fraction of 62% with a mild decrease in diastolic function. 2. There are normal sizes. No left ventricular hypertrophy was noted. 3. Trileaflet aortic valve with no aortic stenosis & a trace to mild amount of aortic insufficiency. The aortic valve area was measured within normal ranges at 2.5cm2 with a mean pressure gradient across the valve of 6mm Hg. 4. A mild amount of tricuspid insufficiency with estimated right ventricular systolic pressures within normal ranges at 29mm Hg. 5. A mild to borderline moderate amount of mitral insufficiency with no mitral stenosis. 6. There is a trace of pulmonic insufficiency present. Dictated by: Korey Simmons M.D. on 09/13/2017 at 9:30 Transcribed by: SESAR on 09/14/2017 at 9:24 Approved by: Korey Simmons M.D. on 09/14/2017 at 10:24 [facility]
== END 2017-09-12 12:40 | disposition home or self-care (01) ==
LOC: ER 15:34 → MED 18:25 → INTOOBSV 18:25 → EDBEDREQ 18:44
PROVIDERS: ADMIT Internal Medicine; ATTEND Internal Medicine
DX: I48.91 Unspecified atrial fibrillation (principal); I10 Essential (primary) hypertension; E87.6 Hypokalemia; N20.0 Calculus of kidney; I35.0 Nonrheumatic aortic (valve) stenosis
CPT/HCPCS: 36415; 71046; 83735; 84443; 84484; 85025; 93005; 93306; 96361; 96365; 96366; 96372; 96375; 99285; G0378; J1650; J3480; J3490; J7030; 82040; 82247; 82310; 82374; 82435; 82565; 82947; 84075; 84132; 84155; 84295; 84450; 84460; 84520

== ENCOUNTER 2017-09-14 07:03 | Outpatient (RCR) | payer BC ==
[2017-09-12 11:55] VITALS: BMI 27.5
--- NOTE | 2017-09-14 16:21 | Transitional Care Management ---
Assessment Visit Type: Telephone Visit Spoke with: Rowena Cardiac: WNL Cardiac Comment: 09/14 no recurrent irregular or fast heart rhythm GI: Nutrition: WNL GI Comment: 09/14 knows to take potassium and asa with food to avoid abd pain Musculoskeletal, Exercise: WNL Feeling of Well Being: WNL Feeling of Well Being Comment: 09/14 feels much better today Pain/Management: WNL Scheduled Follow-Up with Provi: Yes Questions for Future PCP Visit: 09/14 potassium up today, does it need to be checked again soon? will potassium dose need to be adjusted? Following Discharge Instructio: Yes TCM Discharge Criteria Medication Knowledge: 09/14 has new aspirin and potassium prescribed at id. 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 But wants the calls to keep updated and incase of questions. 09/14 Home 09/12. has rx, had repeat potassium; up to 4.4 today and eating K rich foods. remind to avoid stress caffeine and etoh. monitor pulse and s/s of hi/lo potassium. will see Milly Plascencia [employer] later this week and also Dr Anderson and will review new condition DANIEL LEE Sep 14, 2017 16:21
--- NOTE | 2017-09-26 11:46 | Transitional Care Management ---
Assessment Visit Type: Telephone Visit Spoke with: Rowena Cardiac: WNL Cardiac Comment: 09/14 no recurrent irregular or fast heart rhythm 09/26 no repeat a fib even after playing tennis Respiratory Comment: 09/26 no sob reported GI: Nutrition: WNL GI Comment: 09/14 knows to take potassium and asa with food to avoid abd pain Comment: 09/[address] Anderson on 09/22 and has "2 tiny stones" not causing problems Musculoskeletal, Exercise: WNL Feeling of Well Being: WNL Feeling of Well Being Comment: 09/14 feels much better today 09/26 return to playing tennis Pain/Management: WNL Pain/Management Comment: 09/26 normal joint pain Scheduled Follow-Up with Provi: Yes (09/26 to see Milly Plascencia, saman Barrera 09/22) Questions for Future PCP Visit: 09/14 potassium up today, does it need to be checked again soon? will potassium dose need to be adjusted? Needed or Pending Tests: Yes (09/26 repeat potassium level this week to see if last normal level indicated an increasing trend or is stable) Following Discharge Instructio: Yes TCM Discharge Criteria Medication Knowledge: 09/14 has new aspirin and potassium prescribed at pr. 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 But wants the calls to keep updated and incase of questions. 09/14 Home 09/12. has rx, had repeat potassium; up to 4.4 today and eating K rich foods. remind to avoid stress caffeine and etoh. monitor pulse and s/s of hi/lo potassium. will see Milly MARIN later this week and also Dr Anderson and will review new condition 09/26 will get potassium this week then see Milly to review. wants to review echo report from hospital. States she was told K level would be monitored q mo. Is aware to eat with new meds to avoid stomach upset and knows s/s hi or low K DANIEL LEE Sep 26, 2017 11:46
--- NOTE | 2017-10-10 10:36 | Transitional Care Management ---
Assessment Visit Type: Telephone Visit Cardiac: WNL Cardiac Comment: 09/14 no recurrent irregular or fast heart rhythm 09/26 no repeat a fib even after playing tennis 10/10 no fast heart rate, palpitations, vertigo etc even with activity. PCP let her listen to her murmurand reviewed echo with her Respiratory Comment: 09/26 no sob reported 10/10 no sob GI: Nutrition: WNL GI Comment: 09/14 knows to take potassium and asa with food to avoid abd pain 10/10 taking asa and naproxen at 2 different times to avoid stomach problems Comment: 09/[address] Anderson on 09/22 and has "2 tiny stones" not causing problems Musculoskeletal, Exercise: WNL Feeling of Well Being: WNL Feeling of Well Being Comment: 09/14 feels much better today 09/26 return to playing tennis 10/10 feels like she has enough info to take care of self Pain/Management: WNL Pain/Management Comment: 09/26 normal joint pain Scheduled Follow-Up with Provi: Yes (09/26 to see Milly Plascencia, saman Anderson 09/22) Questions for Future PCP Visit: 09/14 potassium up today, does it need to be checked again soon? will potassium dose need to be adjusted? Needed or Pending Tests: Yes (09/26 repeat potassium level this week to see if last normal level indicated an increasing trend or is stable) Following Discharge Instructio: Yes TCM Discharge Criteria Medication Knowledge: 09/14 has new aspirin and potassium prescribed at [facility]. 10/10 PCP instructed to finish up this RX (30 day) of potassium and get level checked next week before refilling. has 5 refills. states she will cont. to check q mo and has a standing order but can go to [facility] at any time to check. 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 But wants the calls to keep updated and incase of questions. 09/14 Home 09/12. has rx, had repeat potassium; up to 4.4 today and eating K rich foods. remind to avoid stress caffeine and etoh. monitor pulse and s/s of hi/lo potassium. will see Milly MARIN later this week and also Dr Anderson and will review new condition 09/26 will get potassium this week then see Milly to review. wants to review echo report from hospital. States she was told K level would be monitored q mo. Is aware to eat with new meds to avoid stomach upset and knows s/s hi or low K 10/10 verbalizes management and s/s to watch for and report. has f/u with uro and PCP re: meds and labs. no se of ASA or s/s recurrent a fib or low potassium. Agree to dc from DANIEL Pena Oct 10, 2017 10:36
== END 2017-10-12 06:50 | disposition home or self-care (01) ==
LOC: TCM 07:03
PROVIDERS: ATTEND Nurse Practitioner
DX: Z02.9 Encounter for administrative examinations, unspecified (principal)

== ENCOUNTER → 2017-09-14 | Outpatient (CLI) | payer BC ==
[2017-09-12 11:55] VITALS: BMI 27.5
[~2017-09-14] MED LIST changes: +ASPI81TA86 PO; +DIAZ2TAB74 PO; +OMEG-23 PO; +POTA15TA PO; +POTA20TA85 PO
== END ==
LOC: LAB 10:32
PROVIDERS: ATTEND Nurse Practitioner Family
DX: E87.6 Hypokalemia (principal)
CPT/HCPCS: 36415; 84132

== ENCOUNTER → 2017-09-23 | Outpatient (CLI) | payer BC ==
[2017-09-12 11:55] VITALS: BMI 27.5
--- NOTE | 2017-09-23 14:21 | RADIOLOGY IMAGING REPORT ---
FACILITY: [facility] [place] PATIENT NAME: Rowena Duron : 1955 MR: [id number] V: [id number] EXAM DATE: ORDERING PHYSICIAN: PATRICIA EWING TECHNOLOGIST: Location: [facility] [place] Patient: Rowena Duron : 1955 Visit/Account:[id number] Date of Sevice: 09/23/2017 ABDOMEN PELVIS ESWL CYSTO W/O HISTORY: Kidney stones TECHNIQUE: Axial images acquired through the abdomen/pelvis. Coronal and sagittal reformatting also performed. No IV contrast administered. Dose Lowering Technique One of the following dose optimization techniques was utilized in the performance of this exam: Autom ated exposure control; adjustment of the mA and/or kV according to the patient's size; or use of an i terative reconstruction technique. Specific details can be referenced in the facility's radiology C T exam operational policy. COMPARISON: June 18, 2017 FINDINGS: Visualized lung bases: Negative. Hepatobiliary: Gallbladder appears contracted which could be related to a recent meal Spleen: Negative. Adrenals: Negative. Pancreas: Negative. Kidneys ureters and bladder: There are two calcifications seen in the lower pole calyces the left kid ryanne largest measuring approximately 2 mm in diameter. There is a single punctate 1 mm calcification upper pole of the right kidney. There is no evidence of hydronephrosis or hydroureter Genitalia: Negative. GI: Negative. Vessels/spaces/nodes: There are prominent gonadal veins bilaterally. Just anterior to the right-ric ed the lower sacrum on the right is a cystic structure measuring 2 x 2.4 x 2.9 cm and extends to the adjacent right neural foramen. This may represent a nerve root sleeve diverticulum appears well tot ally unchanged when compared to the prior study.. Bones/soft tissues: There is a levoconvex scoliosis of the lumbar spine with moderate spondylotic ch anges including a 9 mm anterior listhesis of L5 with respect S1 that appears unchanged Additional findings: None pertinent. IMPRESSION: No obstructing nephrolithiasis bilaterally Additional chronic findings as described Report Dictated By: Faviola Cabrera MD at 09/23/2017 2:03 PM Report E-Signed By: Faviola Cabrera MD at 09/23/2017 2:17 PM WSN:[email or web address]
== END ==
LOC: CT 02:12
PROVIDERS: ATTEND Urology
DX: N20.0 Calculus of kidney (principal); M47.896 Other spondylosis, lumbar region
CPT/HCPCS: 74176

== ENCOUNTER → 2018-08-12 | Outpatient (CLI) | payer MEDICARE, OTHER ==
[2017-09-12 11:55] VITALS: BMI 27.5
[~2018-08-12] MED LIST changes: -HYDR-4309 PO; +HYDR-653 PO
--- NOTE | 2018-08-13 09:47 | RADIOLOGY IMAGING REPORT ---
[place] [facility] [place] NAME: REYES BARRY : [id number] MR: [id number] V: [id number] EXAM DATE: ORDERING PHYSICIAN: MARGARET ROMO TECHNOLOGIST: Kelli Herron PROCEDURE:BILATERAL DIGITAL SCREENING MAMMOGRAM WITH CAD ASSISTED INTERPRETATION & 3D TOMOSYNTHESIS COMPARISON:Prior mammograms dated 03/25/17, 01/25/15, 11/03/12, 10/22/12 INDICATIONS:SCREENING FINDINGS: There are scattered areas of fibroglandular density in both breasts. The parenchymal pattern has remained stable allowing for difference in mammographic technique & patient positioning. DIAGNOSTIC CATEGORY 1--NEGATIVE. RECOMMENDATIONS: ROUTINE MAMMOGRAM AND CLINICAL EVALUATION. IMPRESSION: BIRADS 1: Negative. No significant abnormality is seen. Dictated by: Faviola Cabrera M.D. on 08/12/2018 at 11:13 Transcribed by: SESAR on 08/12/2018 at 14:14 Approved by: Faviola Cabrera M.D. on 08/13/2018 at 9:45 [facility]
== END ==
LOC: MAMO 00:40
PROVIDERS: ATTEND Nurse Practitioner Psychiatric/Mental Health
DX: Z12.31 Encounter for screening mammogram for malignant neoplasm of breast (principal)
CPT/HCPCS: 77063; 77067